=== PATIENT | female | born 1985 | race Caucasian/White ===

== ENCOUNTER → 2021-01-03 | Outpatient (CLI) | payer BC ==
[~2021-01-03] MED LIST: ACHYD1T PO; IBP600T1 PO; LANS15CA PO; PREN-93 PO
--- NOTE | 2021-01-03 12:32 | Diagnostic Imaging Report ---
INDICATION: survey TECHNIQUE: Multiple real-time grayscale images were obtained over the gravid uterus. COMPARISON: None FINDINGS: There are no prior studies available for comparison. There is a single fetus in cephalic presentation. heart motion was noted in the rate of 142 BPM is clear. There are no abnormalities identified. However there may be a small choroid plexus cyst. I would recommend a short-term (2-4 week) followup exam be performed for further study. The placenta is anterior. The amniotic fluid volume is within normal limits. The growth parameters are fairly uniform. The cervix was visualized and measures 4.2 cm length. The ovaries were not well imaged. IMPRESSION: 1. There is a single live fetus approximately 20 weeks 2 days gestation +/- 1.5 weeks. EDC is 05/21/2021. 2. There were no abnormality is identified. However there is a questionable choroid plexus cyst. Recommendations as above. 3. The growth are fairly uniform. Biometrical measurements are as follows: Biparietal 4.69 cm, age 20 weeks 2 days. Head circumference 18.30 cm, age 20 weeks 5 days. Abdominal circumference 15.48 cm, age 20 weeks 5 days. Femur length 3.03 cm, age 19 weeks 3 days. Sonographic estimate age: 20 weeks 2 days. Sonographic estimated date of delivery: 05/21/2021. Estimated Weight: 334 gm (+/- 49 gm). LMP percentile: 84%. heart rate: 142 beats per minute. number: 1 of 1. IMPRESSION: Dictated by: Dictated on workstation # [id number]
== END ==
LOC: RAD 10:07
PROVIDERS: ATTEND Obstetrics & Gynecology
DX: Z34.92 Encounter for supervision of normal pregnancy, unspecified, second trimester (principal); Z3A.20 20 weeks gestation of pregnancy
CPT/HCPCS: 76805

== ENCOUNTER → 2021-02-24 | Outpatient (CLI) | payer BC ==
--- NOTE | 2021-02-24 16:01 | Diagnostic Imaging Report ---
INDICATION: Choroid plexus cyst, followup. TECHNIQUE: Multiple real-time grayscale images were obtained over the gravid uterus. COMPARISON: 01/03/2021. FINDINGS: There is a single live fetus in transverse presentation head to maternal left. heart rate was recorded at 153 bpm. Placenta is anterior. Amniotic fluid index is 18.7 cm. No choroid plexus cyst is identified on today's study. Cervical length is 5.4 cm. IMPRESSION: No evidence of choroid plexus cyst. Dictated by: Dictated on workstation # [id number]
== END ==
LOC: RAD 10:45
PROVIDERS: ATTEND Obstetrics & Gynecology
DX: G93.0 Cerebral cysts (principal)
CPT/HCPCS: 76816

== ENCOUNTER 2021-05-20 07:30 | Inpatient (IN) | payer BC ==
[~2021-05-20] VITALS: Ht 172.7 cm; Wt 106.7 kg
[2021-05-20] VITALS (73 sets, daily range): BP systolic 93–179; BP diastolic 48–107
[2021-05-20] MEDS ORDERED: MINERAL OIL CONCENTRATE 99.9% 15 ML UDC TOP PRN (08:30)
[2021-05-20 08:33] LABS: BASOPHILS % (AUTO) 0 % (0-10); EOSINOPHILS # (AUTO) 0.1 10^3/uL (0.0-0.3); EOSINOPHILS % (AUTO) 2 % (0-10); HEMATOCRIT 31 % (35-52); HEMOGLOBIN 10.3 g/dL (11.5-16.0); LYMPHOCYTES # (AUTO) 1.8 10^3/uL (1.0-4.0); LYMPHOCYTES % (AUTO) 19 % (12-44); MEAN CORPUSCULAR HEMOGLOBIN 27 pg (25-34); MEAN CORPUSCULAR HGB CONC 33 g/dL (32-36); MEAN CORPUSCULAR VOLUME 84 fL (80-99); MEAN PLATELET VOLUME 10.9 fL (9.0-12.2); MONOCYTES # (AUTO) 0.6 10^3/uL (0.0-1.0); MONOCYTES % (AUTO) 6 % (0-12); NEUTROPHILS # (AUTO) 6.9 10^3/uL (1.8-7.8); NEUTROPHILS % (AUTO) 73 % (42-75); PLATELET COUNT 271 10^3/uL (130-400); WHITE BLOOD COUNT 9.5 10^3/uL (4.3-11.0)
[2021-05-20] MEDS: D5 LR IV SOLUTION 1,000 ML IV SCH ×2 (09:00→17:00)
[2021-05-20] MEDS ORDERED: fentaNYL 2 mcg/ml BUPIVA 0.125 100 ML ONE (09:07)
[2021-05-20] MEDS ORDERED: OXYTOCIN PRE-MIX DRIP 500 ML IV ONE (09:07)
[2021-05-20] MEDS ORDERED: LACTATED RINGERS 1,000 ML IV ONE (09:07)
[2021-05-20] MEDS ORDERED: OXYTOCIN PRE-MIX DRIP 500 ML IV SCH (09:15)
[2021-05-20 12:22] LABS: BILIRUBIN,URINE NEGATIVE (NEGATIVE); CLARITY,URINE CLOUDY; COLOR,URINE YELLOW; GLUCOSE, URINE (UA) NEGATIVE (NEGATIVE); KETONES,URINE TRACE (NEGATIVE); LEUKOCYTE ESTERASE ,URINE NEGATIVE (NEGATIVE); NITRITE,URINE NEGATIVE (NEGATIVE); PROTEIN,URINE NEGATIVE (NEGATIVE)
[2021-05-20 12:40] LABS: BACTERIA,URINE MODERATE /HPF
[2021-05-20 12:41] LABS: HYALINE CASTS, URINE RARE /LPF
[2021-05-20] MEDS ORDERED: CATHETER FLUSH 10 ML SYR IV SCH (14:00)
[2021-05-20] MEDS ORDERED: BUPIVACAINE 0.25% 30 ML (SENSORCAINE) VIAL ONE (18:15)
[2021-05-20] MEDS ORDERED: MINERAL OIL CONCENTRATE 99.9% 15 ML UDC ONE (23:03)
[2021-05-20] MEDS ORDERED: LIDOCAINE/EPI 2% 1:200,00 (XYLOCAINE) 20 ML VIAL ONE (23:03)
--- NOTE | 2021-05-20 23:41 | History & Physical-OB ---
OB - Chief Complaint & HPI Date/Time Date of Admission: Date of Admission: May 20, 2021 at 07:37 Chief Complaint/History Expected Date of Delivery: May 27, 2021 Gestational Age in Weeks: 39 Gestational Age in Days: 0 Allergies and Home Medications Allergies Coded Allergies: No Known Allergies (Unverified Allergy, Unknown, 11/30/14) Patient Home Medication List Hydrocodone Bit/Acetaminophen (Lorcet Plus 10/325 Mg) 1 Ea Tab, 1 EA PO Q4H PRN for PAIN Prescribed by: MITCHELL VIGIL on 12/03/14 08 Ibuprofen (Motrin Tablet) 600 Mg Tab, 600 MG PO Q6H Prescribed by: MITCHELL VIGIL on 12/03/14 08 Lansoprazole (Prevacid) 15 Mg Capsule.dr, 15 MG PO DAILY PRN for GAS, (Reported) Entered as Reported by: FLAQUITA KERNS on 12/01/14 0717 Vit/Fe Fumarate/Fa ( Multivitamins Tablet) 1 Each Tablet, 1 EACH PO, (Reported) Entered as Reported by: FLAQUITA KERNS on 12/01/14 0716 OB - History Delivery History Hx Blood Disorders: No Adverse Rxn to Tranfusion: No Patient Past Medical History No chronic medical problems Immunizations Hepatitis A: No Hepatitis B: No Tetanus Booster (TDap): More than 5yrs OB - Admission Exam Physical Exam Vitals: Vital Signs 05/20/21 05/20/21 05/20/21 05/20/21 10:50 21:00 21:15 22:15 Temp 36.8 Pulse 82 Resp 18 B/P (MAP) 139/102 (114) Pulse Ox 97 O2 Delivery Room Air O2 Flow Rate 15.00 Labs Laboratory Tests Test 05/20/21 07:40 05/20/21 08:07 Range/Units Urine Color YELLOW Urine Clarity CLOUDY Urine pH 6.0 5-9 Urine Specific [place] >=1.030 1.016-1.022 Urine Protein NEGATIVE NEGATIVE Urine Glucose (UA) NEGATIVE NEGATIVE Urine Ketones TRACE H NEGATIVE Urine Nitrite NEGATIVE NEGATIVE Urine Bilirubin NEGATIVE NEGATIVE Urine Urobilinogen 0.2 < = 1.0 MG/DL Urine Leukocyte Esterase NEGATIVE NEGATIVE Urine RBC (Auto) NEGATIVE NEGATIVE Urine RBC NONE /HPF Urine WBC 5-10 H /HPF Urine Squamous Epithelial Cells 10-25 H /HPF Urine Crystals NONE /LPF Urine Bacteria MODERATE H /HPF Urine Casts NONE /LPF Urine Hyaline Casts RARE /LPF Urine Mucus MODERATE H /LPF Urine Culture Indicated YES White Blood Count 9.5 4.3-11.0 10^3/uL Red Blood Count 3.76 L 3.80-5.11 10^6/uL Hemoglobin 10.3 L 11.5-16.0 g/dL Hematocrit 31 L 35-52 % Mean Corpuscular Volume 84 80-99 fL Mean Corpuscular Hemoglobin 27 25-34 pg Mean Corpuscular Hemoglobin Concent 33 32-36 g/dL Red Cell Distribution Width 13.1 10.0-14.5 % Platelet Count 271 130-400 10^3/uL Mean Platelet Volume 10.9 9.0-12.2 fL Immature Granulocyte % (Auto) 1 % Neutrophils (%) (Auto) 73 42-75 % Lymphocytes (%) (Auto) 19 12-44 % Monocytes (%) (Auto) 6 0-12 % Eosinophils (%) (Auto) 2 0-10 % Basophils (%) (Auto) 0 0-10 % Neutrophils # (Auto) 6.9 1.8-7.8 10^3/uL Lymphocytes # (Auto) 1.8 1.0-4.0 10^3/uL Monocytes # (Auto) 0.6 0.0-1.0 10^3/uL Eosinophils # (Auto) 0.1 0.0-0.3 10^3/uL Basophils # (Auto) 0.0 0.0-0.1 10^3/uL Immature Granulocyte # (Auto) 0.1 0.0-0.1 10^3/uL FRANCHESKA BAILEY DO May 20, 2021 23:41
--- NOTE | 2021-05-20 23:46 | OB Labor & Delivery Record ---
Vag Delivery Note Vag Delivery Note Date of Delivery: 05/20/21 Preoperative Diagnosis: Madeleine Rodriguez is a 35 /Para 2/1,Gestational Age 39 weeks for social induction Postoperative Diagnosis: Same Surgeon: FRANCHESKA BAILEY Anesthesia: interthecal epidural Delivery Type: vacuum assisted vaginal Findings: [] Viable male , apgars 9/9, weight 3770 g Lacerations: right vaginal small Intact placenta with 3 vessel cord. Nuchal cord x 1 reduced. No shoulder dystocia Estimated Blood Loss: 300 ml Complications: None Condition: Stable Description of Procedure: The patient is a 35 year old female who presented for induction of labor. She was admitted and informed consent was obtained. Her labor course was remarkable for pitocin induction and augmentation and AROM. she had an epidural which was placed unintentionally intrathecally. Due to this there was some difficulty in controlling her pain. She did reach 4-5 cm dilated and then had variable decelerations and was having hyperstimulation so pitocin was stopped. she continued to progress in labor without further augmentation. She progressed to complete dilatation and began to push. She was then set up for delivery. At maternal request, at + 2 station, the [place] vacuum was placed on the infant's head and was delivered atraumatically in the [place] position with two contractions and no pop offs. The shoulders and remainder of the 's body were then delivered without difficulty. Upon delivery, the head was held below the level of the perineum and the mouth and nares were bulb suctioned. The cord was doubly clamped and cut and the was handed off to the pediatric staff. An intact placenta with 3-vessel cord delivered via Melissa and there was found to be minimal bleeding.~ Vigorous fundal massage was performed and the fundus was found to be firm. IV oxytocin was given. Examination of the vagina and perineum revealed a small right vaginal laceration repaired in the usual fashion with 3-0 vicryl suture. Following the repair, sponge, instrument and needle counts were correct. Mom and baby were both in stable condition in the labor suite. Vitals - Labs Vital Signs - I&O Vital Signs Date Time Temp Pulse Resp B/P (MAP) Pulse Ox O2 Delivery O2 Flow Rate FiO2 05/20/21 22:15 82 18 139/102 (114) Room Air 05/20/21 22:00 71 18 146/89 (108) Room Air 05/20/21 21:45 78 18 149/92 (111) Room Air 05/20/21 21:30 91 18 138/95 (109) Room Air 05/20/21 21:15 36.8 85 18 145/90 (108) Room Air 05/20/21 21:00 76 18 173/102 (125) 97 Room Air 05/20/21 20:45 86 18 172/103 (126) 97 Room Air 05/20/21 20:15 78 18 150/94 (112) 97 Room Air 05/20/21 20:00 110 18 136/83 (100) 99 Room Air 05/20/21 19:45 36.9 85 18 109/55 (73) 99 Room Air 05/20/21 19:30 80 18 119/61 (80) 97 Room Air 05/20/21 19:15 74 18 123/78 (93) 97 Room Air 05/20/21 19:00 71 18 107/58 (74) 97 Room Air 05/20/21 18:45 74 18 110/58 (75) 97 Room Air 05/20/21 18:30 88 18 128/84 (99) 99 Room Air 05/20/21 18:15 80 18 137/77 (97) 100 Room Air 05/20/21 18:00 37.0 82 18 120/68 (85) 99 Room Air 05/20/21 17:45 83 18 131/70 (90) 100 Room Air 05/20/21 17:30 75 18 137/77 (97) 97 Room Air 05/20/21 17:15 79 18 128/72 (90) 99 Room Air 05/20/21 17:00 70 18 124/67 (86) 99 Room Air 05/20/21 16:45 37.4 78 18 105/58 (74) 99 Room Air 05/20/21 16:30 75 18 119/74 (89) 98 Room Air 05/20/21 16:15 76 18 125/83 (97) 99 Room Air 05/20/21 16:00 37.2 72 18 133/59 (83) 98 Room Air 05/20/21 15:50 77 18 145/95 (112) 97 Room Air 05/20/21 15:45 85 18 156/107 (123) 98 Room Air 05/20/21 15:30 77 18 152/97 (115) 95 Room Air 05/20/21 15:15 74 18 143/81 (101) 95 Room Air 05/20/21 15:00 37.0 71 18 137/83 (101) 99 Room Air 05/20/21 14:45 75 18 141/81 (101) 99 Room Air 05/20/21 14:30 70 18 135/83 (100) 99 Room Air 05/20/21 14:15 37.2 67 18 156/92 (113) 99 Room Air 05/20/21 14:00 73 18 140/89 (106) 98 Room Air 05/20/21 13:15 36.4 68 18 136/78 (97) 99 Room Air 05/20/21 13:00 76 18 140/79 (99) 98 Room Air 05/20/21 12:45 71 18 145/65 (91) 98 Room Air 05/20/21 12:30 74 18 121/68 (85) 97 Room Air 05/20/21 12:15 74 18 121/68 (85) 97 Room Air 05/20/21 12:00 71 18 128/80 (96) 98 Room Air 05/20/21 11:56 74 18 127/75 (92) 98 Room Air 05/20/21 11:50 71 18 126/78 (94) 98 Room Air 05/20/21 11:46 72 18 123/77 (92) 98 Room Air 05/20/21 11:40 67 18 133/76 (95) 99 Room Air 05/20/21 11:35 66 18 127/81 (96) 99 Room Air 05/20/21 11:30 69 18 123/71 (88) 99 Room Air 05/20/21 11:25 71 18 131/70 (90) 99 Room Air 05/20/21 11:21 65 18 118/67 (84) 100 Room Air 05/20/21 11:14 68 18 108/55 (72) 100 Room Air 05/20/21 11:04 75 18 119/67 (84) 100 Room Air 05/20/21 11:01 77 18 128/67 (87) 100 Room Air 05/20/21 10:58 36.0 70 18 100/51 (67) 98 Room Air 05/20/21 10:55 57 18 93/54 (67) 99 Room Air 05/20/21 10:53 64 18 110/48 (68) 99 Room Air 05/20/21 10:50 75 18 112/50 (70) 100 Non Rebreather 15.00 05/20/21 10:43 116 18 118/78 (91) 98 Room Air 05/20/21 10:40 80 18 122/84 (97) 98 Room Air 05/20/21 10:37 81 18 119/73 (88) 97 Room Air 05/20/21 10:34 83 18 127/80 (96) 97 Room Air 05/20/21 10:31 76 18 125/77 (93) 98 Room Air 05/20/21 10:28 75 18 134/79 (97) 98 Room Air 05/20/21 10:25 75 18 126/79 (95) 98 Room Air 05/20/21 10:22 82 18 141/77 (98) 99 Room Air 05/20/21 10:20 85 18 146/77 (100) 100 Room Air 05/20/21 10:17 90 18 169/79 (109) 100 Room Air 05/20/21 10:00 82 18 138/84 (102) Room Air 05/20/21 08:30 36.7 82 18 96 Room Air 05/20/21 08:30 36.7 82 18 120/76 (91) 96 Room Air Labs Laboratory Tests 05/20/21 07:40: Urine Color YELLOW, Urine Clarity CLOUDY, Urine pH 6.0, Urine Specific [place] >=1.030, Urine Protein NEGATIVE, Urine Glucose (UA) NEGATIVE, Urine Ketones TRACEH, Urine Nitrite NEGATIVE, Urine Bilirubin NEGATIVE, Urine Urobilinogen 0.2, Urine Leukocyte Esterase NEGATIVE, Urine RBC (Auto) NEGATIVE, Urine RBC NONE, Urine WBC 5-10H, Urine Squamous Epithelial Cells 10-25H, Urine Crystals NONE, Urine Bacteria MODERATEH, Urine Casts NONE, Urine Hyaline Casts RARE, Urine Mucus MODERATEH, Urine Culture Indicated YES 05/20/21 08:07: White Blood Count 9.5, Red Blood Count 3.76L, Hemoglobin 10.3L, Hematocrit 31L, Mean Corpuscular Volume 84, Mean Corpuscular Hemoglobin 27, Mean Corpuscular Hemoglobin Concent 33, Red Cell Distribution Width 13.1, Platelet Count 271, Mean Platelet Volume 10.9, Immature Granulocyte % (Auto) 1, Neutrophils (%) (Auto) 73, Lymphocytes (%) (Auto) 19, Monocytes (%) (Auto) 6, Eosinophils (%) (Auto) 2, Basophils (%) (Auto) 0, Neutrophils # (Auto) 6.9, Lymphocytes # (Auto) 1.8, Monocytes # (Auto) 0.6, Eosinophils # (Auto) 0.1, Basophils # (Auto) 0.0, Immature Granulocyte # (Auto) 0.1 FRANCHESKA BAILEY DO May 20, 2021 23:46
[2021-05-20] MEDS ORDERED: IBUP-844 PO (23:50)
[2021-05-20] MEDS ORDERED: ACET-93 PO (23:50)
--- NOTE | 2021-05-20 23:50 | Discharge Inst-Women's Service ---
Discharge Inst-Women's Serv Depart Medication/Instructions New, Converted or Re-Newed RX: Transmitted to Pharmacy Final Diagnosis social induction vacuum assisted vaginal delivery intrathecal epidural placement Problems Reviewed?: Yes Consults/Follow Up Additional Follow Up: Yes (6 weeks for pp exam) Activity Activity: Activity as Tolerated Driving Instructions: You May Drive NO SMOKING: NO SMOKING Nothing Inside Vagina: No Douching, No [place], No Tampons Diet Discharge Diet: No Restrictions Symptoms to Report to : Swelling Increased, Bleeding Excessive, Pain Increased, Fever Over 101 Degrees F, Vaginal Bleeding Increase, Cramps in Feet or Legs, Vaginal Discharge Foul For Any Problems or Questions: Contact Your Physician FRANCHESKA BAILEY DO May 20, 2021 23:50
[2021-05-20] MEDS: IBUPROFEN 600 MG (MOTRIN) TAB PO SCH (23:56)
[2021-05-21] VITALS (11 sets, daily range): BP systolic 99–131; BP diastolic 54–86
[2021-05-21] MEDS ORDERED: MEASLES,MUMPS,RUBELLA 1 EA INJ SQ ONE
[2021-05-21] MEDS ORDERED: TETANUS,DIPTH,PERTUSS P/F (BOOSTRIX) 0.5 ML VIAL IM ONE
[2021-05-21] MEDS ORDERED: BENZOCAINE/MENTHOL (DERMOPLAST) 56 ML CAN TP PRN
[2021-05-21] MEDS ORDERED: WITCH HAZEL(TUCKS) 40 EA JAR TOP PRN
[2021-05-21] MEDS ORDERED: OXYTOCIN PRE-MIX DRIP 500 ML IV SCH
[2021-05-21] MEDS ORDERED: DIBUCAINE 1% OINTMENT 30 GM TUBE TOP PRN
[2021-05-21] MEDS: ACETAMINOPHEN 500 MG TAB (TYLENOL) PO SCH ×4 (01:53→21:18)
[2021-05-21] MEDS: IBUPROFEN 600 MG (MOTRIN) TAB PO SCH ×3 (05:16→17:53)
[2021-05-21 05:48] LABS: BASOPHILS % (AUTO) 0 % (0-10); EOSINOPHILS % (AUTO) 0 % (0-10); HEMATOCRIT 29 % (35-52); HEMOGLOBIN 9.4 g/dL (11.5-16.0); LYMPHOCYTES # (AUTO) 1.5 10^3/uL (1.0-4.0); LYMPHOCYTES % (AUTO) 9 % (12-44); MEAN CORPUSCULAR HEMOGLOBIN 27 pg (25-34); MEAN CORPUSCULAR HGB CONC 33 g/dL (32-36); MEAN CORPUSCULAR VOLUME 84 fL (80-99); MEAN PLATELET VOLUME 11.1 fL (9.0-12.2); MONOCYTES # (AUTO) 0.8 10^3/uL (0.0-1.0); MONOCYTES % (AUTO) 5 % (0-12); NEUTROPHILS # (AUTO) 14.4 10^3/uL (1.8-7.8); NEUTROPHILS % (AUTO) 86 % (42-75); PLATELET COUNT 288 10^3/uL (130-400); WHITE BLOOD COUNT 16.8 10^3/uL (4.3-11.0)
[2021-05-21] MEDS ORDERED: CATHETER FLUSH 10 ML SYR IV SCH (06:00)
--- NOTE | 2021-05-21 07:33 | Anesthesia-Regional Post-Op ---
Regional Patient Condition Mental Status: Alert, Oriented x3 Circulation: Same as Pre-Op Headache: Absent Sensation: Full Recovery Motor Block: Absent Post Op Complications Complications None Follow Up Care/Instructions Patient Instructions None needed. Anesthesia/Patient Condition Patient is doing well, no complaints, stable vital signs, no apparent adverse anesthesia problems. No complications reported per nursing. DEVONTE ESTEVEZ CRNA May 21, 2021 07:33
[2021-05-21] MEDS: PRENATAL VITAMIN 1 EA TAB PO SCH (07:47)
[2021-05-21] MEDS: FERROUS SULF 325 MG (IRON) TAB PO SCH (07:48)
[2021-05-21] MEDS: DOCUSATE SODIUM 100 MG (COLACE) CAP PO SCH ×2 (07:48→21:17)
[2021-05-22] MEDS: IBUPROFEN 600 MG (MOTRIN) TAB PO SCH ×2 (00:04→08:59)
[2021-05-22 03:15] VITALS: BP 111/67
[2021-05-22] MEDS: ACETAMINOPHEN 500 MG TAB (TYLENOL) PO SCH ×2 (03:16→08:59)
[2021-05-22 07:48] VITALS: BP 127/80
[2021-05-22] MEDS: DOCUSATE SODIUM 100 MG (COLACE) CAP PO SCH (08:58)
[2021-05-22] MEDS: PRENATAL VITAMIN 1 EA TAB PO SCH (08:59)
[2021-05-22] MEDS: FERROUS SULF 325 MG (IRON) TAB PO SCH (08:59)
[2021-05-22 11:05] VITALS: BP 135/86
[2021-05-22 11:12] VITALS: BP 134/85
[2021-05-22 11:17] VITALS: BP 135/88
--- NOTE | 2021-05-22 11:28 | Progress Note ---
Standard Progress Note Progress Notes/Assess & Plan Date Seen by a Provider: May 22, 2021 Time Seen by a Provider: 11:27 Progress/Assessment & Plan Patient is without complaint except for spinal headache for which she just received a blood patch. She is ambulating, voiding and tolerating oral intake Vital Signs Date Time Temp Pulse Resp B/P (MAP) Pulse Ox O2 Delivery O2 Flow Rate FiO2 05/22/21 07:48 36.5 65 18 127/80 (96) 96 Room Air 05/22/21 03:15 37.0 69 16 111/67 (82) 96 Room Air 05/21/21 21:17 36.7 71 16 99/54 (69) 97 Room Air 05/21/21 15:43 36.7 81 16 115/71 (86) 99 Room Air 05/21/21 12:07 36.7 86 16 113/76 (88) 98 Room Air Vital signs are stable. Patient is afebrile. The abdomen is benign Extremities show no clubbing cyanosis. There is no Homans' sign. Assessment and plan day #2 status post vaginal delivery doing wellPlan is for routine convalescent care with discharge home when patient requests discharge Final Diagnosis Vaginal delivery SHAUNA CHAUDHRY MD May 22, 2021 11:28
[2021-05-22] MEDS ORDERED: OXYC1TAB87 PO (11:29)
--- NOTE | 2021-05-22 11:35 | Anesthesia-Procedure Note ---
Procedures/Interventions Procedure Start/Stop/Diagnosis Date of Procedure: May 22, 2021 Start Time: 11:00 Stop Time: 11:20 Blood Patch Blood Patch blood patch performed with 20 cc autologous blood under sterile technique. no issues noted. immediate relief stated by patient. back to supine position for 2 hrs. start time 1100 end time 1120 DEVONTE ESTEVEZ CRNA May 22, 2021 11:35
[2021-05-22 13:58] VITALS: BP 135/88
== END 2021-05-22 14:30 | disposition home or self-care (01) | DRG 807 ==
LOC: LDRP 07:37
PROVIDERS: ADMIT Obstetrics & Gynecology; ATTEND Obstetrics & Gynecology
PROC: 10D07Z6 Extraction of Products of Conception, Vacuum, Via Natural or Artificial Opening (ICD-10-PCS; principal; 2021-05-20)
PROC: 0UQGXZZ Repair Vagina, External Approach (ICD-10-PCS; 2021-05-20)
PROC: 3E033VJ Introduction of Other Hormone into Peripheral Vein, Percutaneous Approach (ICD-10-PCS; 2021-05-20)
PROC: 3E0R3GC Introduction of Other Therapeutic Substance into Spinal Canal, Percutaneous Approach (ICD-10-PCS; 2021-05-22)
DX: O71.4 Obstetric high vaginal laceration alone (principal); Z37.0 Single live birth; O69.81X0 Labor and delivery complicated by cord around neck, without compression, not applicable or unspecified; Z3A.39 39 weeks gestation of pregnancy; O89.4 Spinal and epidural anesthesia-induced headache during the puerperium
CPT/HCPCS: 36415; 81000; 85025; 86850; 86900; 86901; 87088